=== PATIENT | female | born 2000 | race Hispanic/Latino ===

== ENCOUNTER 2021-11-24 16:45 | Emergency (ER) | payer SELFPAY ==
[~2021-11-24] VITALS: Ht 157.5 cm; Wt 104.3 kg
[2021-11-24] MEDS ORDERED: Morphine 4mg Syringe 4 MG/ML INJ IV PRN (17:00)
[2021-11-24] MEDS ORDERED: SODIUM CHLORIDE 0.9% 1000ML 1,000 ML IV ONE (17:00)
[2021-11-24] MEDS ORDERED: ONDANSETRON HCL INJ 2MG/ML 2ML 2 MG/ML VIAL IV PRN (17:00)
[2021-11-24 17:43] LABS: BASOPHILS % 0.3 % (0.0-1.0); EOSINOPHILS % 0.2 % (0.0-6.0); HEMOGLOBIN 9.7 g/dL (12.0-16.0); LYMPHOCYTES # (AUTO) 1.6 (1.0-3.2); LYMPHOCYTES % 17.6 % (18.0-39.1); MEAN CORPUSCULAR HEMOGLOBIN 19.9 pg (28-32); MEAN CORPUSCULAR HGB CONC 29.4 g/dL (31-35); MEAN CORPUSCULAR VOLUME 67.8 fL (81-99); MONOCYTES # (AUTO) 0.4 (0.2-0.8); MONOCYTES % 4.3 % (4.4-11.3); NEUTROPHILS # (AUTO) 6.8 (2.1-6.9); NEUTROPHILS % 77.3 % (38.7-80.0); PLATELET COUNT 410 x10e3/uL (140-360); RED BLOOD COUNT 4.87 x10e6/uL (3.6-5.1); RED CELL DISTRIBUTION WIDTH 16.8 % (11.7-14.4)
[2021-11-24 17:43] LABS: CLARITY,URINE CLEAR (CLEAR); COLOR,URINE STRAW (YELLOW); KETONES,URINE 2+ (NEGATIVE); LEUKOCYTE ESTERASE ,URINE NEGATIVE (NEGATIVE); NITRITE,URINE NEGATIVE (NEGATIVE); PROTEIN,URINE DIPSTICK NEGATIVE (NEGATIVE); URINE UROBILINOGEN 0.2 mg/dL (0.2 - 1)
[2021-11-24 17:50] LABS: BACTERIA,URINE MODERATE /HPF
[2021-11-24 17:51] LABS: EPITHELIAL CELLS,URINE MANY /LPF
[2021-11-24 18:01] LABS: ALBUMIN 3.7 g/dL (3.5-5.0); ALBUMIN/GLOBULIN RATIO 0.8 (0.8-2.0); AMYLASE 45 U/L (25-125); ANION GAP 11.8 mmol/L (8-16); CALCIUM 9.6 mg/dL (8.4-10.2); CREATININE, SERUM 0.61 mg/dL (0.57-1.11); LIPASE 9 U/L (8-78); POTASSIUM 3.8 mmol/L (3.5-5.1)
[2021-11-24] MEDS ORDERED: SODIUM CHLORIDE 0.9% 50ML 50 ML ONE (18:30)
[2021-11-24] MEDS ORDERED: IOPAMIDOL 370 MG/ML 200 ML INFUS..BTL INJ ONE (18:30)
[2021-11-24] MEDS ORDERED: PROTONIX20 MG PO (19:33)
[2021-11-24] MEDS ORDERED: PROMETHAZINE HCL (IM) 25 MG/ML VIAL IM ONE (19:45)
[2021-11-24] MEDS ORDERED: MAGNESIUM/ALUMINUM/SIMETHICONE 30 ML UDC PO ONE (19:45)
[2021-11-24] MEDS ORDERED: Morphine 4mg Syringe 4 MG/ML INJ IM ONE (20:45)
== END 2021-11-24 20:50 | disposition home or self-care (01) ==
LOC: ER 17:14
DX: R10.13 Epigastric pain (principal); R11.2 Nausea with vomiting, unspecified; K29.70 Gastritis, unspecified, without bleeding
CPT/HCPCS: 36415; 74177; 80053; 81001; 82150; 83690; 84702; 85025; 99284; J2270; J2405; J2550; J7030; Q9967

== ENCOUNTER 2022-12-30 18:24 | Emergency (ER) | payer SELFPAY ==
[~2022-12-30] VITALS: Ht 157.5 cm; Wt 104.3 kg
[~2022-12-30 18:24] MED LIST: PROTONIX20 MG PO
[2022-12-30] MEDS ORDERED: ONDANSETRON HCL 4 MG ORAL DISINTEGRATING TAB PO STA (18:49)
[2022-12-30] MEDS ORDERED: DONNATAL/LIDOCAINE/MAALOX 30 ML SUSP PO STA ×2 (18:49→20:09)
[2022-12-30 19:32] LABS: CLARITY,URINE CLEAR (CLEAR); COLOR,URINE YELLOW (YELLOW); KETONES,URINE 2+ (NEGATIVE); LEUKOCYTE ESTERASE ,URINE NEGATIVE (NEGATIVE); NITRITE,URINE NEGATIVE (NEGATIVE); PROTEIN,URINE DIPSTICK 1+ (NEGATIVE); URINE UROBILINOGEN 0.2 mg/dL (0.2 - 1)
[2022-12-30 19:37] LABS: EPITHELIAL CELLS,URINE MANY /LPF; MUCUS,URINE MANY (RARE)
[2022-12-30 19:38] LABS: BACTERIA,URINE MODERATE /HPF; RBC,URINE 0-5 /HPF (0-5); WBC,URINE (MAN) 0-5 /HPF (0-5)
[2022-12-30] MEDS ORDERED: SODIUM CHLORIDE 0.9% 1000ML 1,000 ML IV STA (20:10)
[2022-12-30] MEDS ORDERED: SODIUM CHLORIDE 0.9% 1000ML 1,000 ML ONE (20:12)
[2022-12-30] MEDS ORDERED: MAGNESIUM/ALUMINUM/SIMETHICONE 30 ML UDC ONE (20:13)
[2022-12-30] MEDS ORDERED: LIDOCAINE VISC 2% SOLN 15 ML UDC ONE (20:13)
[2022-12-30] MEDS ORDERED: BELLADONNA ALK/PHENOBARBITAL 5 ML UDC ONE (20:13)
[2022-12-30 20:30] LABS: BASOPHILS % 0.3 % (0.0-1.0); EOSINOPHILS % 0.2 % (0.0-6.0); HEMATOCRIT 35.5 % (34.2-44.1); HEMOGLOBIN 10.7 g/dL (12.0-16.0); LYMPHOCYTES # (AUTO) 1.7 (1.0-3.2); LYMPHOCYTES % 16.9 % (18.0-39.1); MEAN CORPUSCULAR HEMOGLOBIN 20.7 pg (28-32); MEAN CORPUSCULAR HGB CONC 30.1 g/dL (31-35); MEAN CORPUSCULAR VOLUME 68.7 fL (81-99); MONOCYTES # (AUTO) 0.5 (0.2-0.8); MONOCYTES % 4.5 % (4.4-11.3); NEUTROPHILS # (AUTO) 7.9 (2.1-6.9); NEUTROPHILS % 77.8 % (38.7-80.0); PLATELET COUNT 394 x10e3/uL (140-360); RED BLOOD COUNT 5.17 x10e6/uL (3.6-5.1); RED CELL DISTRIBUTION WIDTH 17.5 % (11.7-14.4)
[2022-12-30 20:57] LABS: ALBUMIN 4.2 g/dL (3.5-5.0); ALBUMIN/GLOBULIN RATIO 0.9 (0.8-2.0); ANION GAP 16.1 mmol/L (8-16); CALCIUM 9.9 mg/dL (8.4-10.2); CREATININE, SERUM 0.65 mg/dL (0.57-1.11); POTASSIUM 4.1 mmol/L (3.5-5.1)
[2022-12-30] MEDS ORDERED: PROMETHAZINE 25MG/ NS 50ML (IV) IV STA (21:08)
[2022-12-30] MEDS ORDERED: ONDANSETRON HCL INJ 2MG/ML 2ML 2 MG/ML VIAL IV STA (22:01)
[2022-12-30] MEDS ORDERED: Morphine 4mg INJECTION 4 MG/ML INJ IV STA (22:01)
[2022-12-30] MEDS ORDERED: PEPCID AC10 MG PO (22:04)
[2022-12-30] MEDS ORDERED: ONDANSETRON ODT4 MG PO (22:04)
[2022-12-30 22:43] VITALS: BP 132/83
== END 2022-12-30 22:43 | disposition home or self-care (01) ==
LOC: ER 18:31
DX: R10.13 Epigastric pain (principal); K44.9 Diaphragmatic hernia without obstruction or gangrene; R11.2 Nausea with vomiting, unspecified
CPT/HCPCS: 36415; 74177; 80053; 81001; 81025; 83690; 85025; 99284; J2270; J2405; J2550; J7030; Q0162